=== PATIENT | female | born 1980 | race Two or more races ===

== ENCOUNTER 2024-06-04 10:02 | Emergency (ER) | payer OTHER ==
[~2024-06-04] VITALS: Ht 160 cm; Wt 64.4 kg
[2024-06-04] MEDS ORDERED: RINGERS SOLUTION,LACTATED 1,000 ML IV STA (11:04)
[2024-06-04] MEDS ORDERED: FAMOtidine 10 MG/ML (4ML VIAL) IV STA (11:05)
[2024-06-04] MEDS ORDERED: ONDANSETRON HCL 2 MG/ML VIAL IV ONE (11:15)
[2024-06-04 11:26] LABS: HEMATOCRIT 40.5 % (36.0-45.00); HEMOGLOBIN 13.9 g/dL (12.0-15.00); MEAN CORPUSCULAR HEMOGLOBIN 29.4 pg (27.00-32.0); MEAN CORPUSCULAR HGB CONC 34.2 g/dl (32.0-36.0); PLATELET COUNT 317 K/uL (150-450); RED BLOOD COUNT 4.71 M/uL (4.00-6.00)
[2024-06-04 11:53] LABS: CALCIUM 8.8 mg/dL (8.5-10.1); CREATININE SERUM 0.61 mg/dL (0.55-1.02); GFR 108.09; POTASSIUM 3.75 mEq/L (3.5-5.1)
[2024-06-04 12:11] LABS: PH,URINE 6.5 (5.0-8.0); URINE APPEARANCE Clear; URINE BILIRRUBIN Negative (NEGATIVE); URINE COLOR Yellow; URINE GLUCOSE Negative (NEGATIVE); URINE KETONE 15 (NEGATIVE); URINE LEUKOCYTE Trace; URINE NITRATE Negative; URINE PROTEIN Negative (NEGATIVE); URINE UROBILINOGEN 0.2 E.U./dl
[2024-06-04 12:18] LABS: URINE BACTERIA 845.3 uL (0.0-1933); URINE EPITHELIAL CELLS 53.9 uL (0.0-38.8); URINE RBC 17.4 uL (0.0-20.8); URINE WBC 22.8 uL (0.0-23.2)
[2024-06-04 12:34] LABS: URINE BLOOD TRACES
== END 2024-06-04 13:19 | disposition home or self-care (01) ==
LOC: ER 10:04
PROVIDERS: General Practice
DX: R11.10 Vomiting, unspecified (principal); R10.9 Unspecified abdominal pain

== ENCOUNTER → 2024-11-25 | Emergency (ER) | payer OTHER | END | disposition home or self-care (01) | LOC: ER 13:16 | DX: J40 Bronchitis, not specified as acute or chronic (principal); F17.210 Nicotine dependence, cigarettes, uncomplicated ==